=== PATIENT | female | born 1995 | race Caucasian/White ===

== ENCOUNTER 2018-09-18 11:21 | Emergency (ER) | payer OTHER ==
[2018-09-18 11:41] VITALS: BP 129/69
--- NOTE | 2018-09-18 12:05 | UC ---
Eye Complaint HPI - HPI Summary HPI Summary: Patient is 23 year old female, who present today to the urgent care with bilateral eye crusting and redness since yesterday. No sick contacts . No skin rash. She also reports cough which is productive of yellowish-green sputum for past 3 weeks and has not improved. Denies any fever, chills, chest pain or shortness of breath . Denies any abdominal pain , nausea or vomiting , diarrhea or constipation. - History of Current Complaint Chief Complaint: UCEye Stated Complaint: BILATERAL EYE COMPLAINT Time Seen by Provider: 09/18/18 11:40 Hx Obtained From: Patient Hx Last Menstrual Period: 09/15/18 Pain Intensity: 2 - Allergies/Home Medications Allergies/Adverse Reactions: Allergies Allergy/AdvReac Type Severity Reaction Status Date / Time No Known Allergies Allergy Verified 09/18/18 11:38 Home Medications: Home Medications Levonorgestrel (Iud) [Mirena IUD] 1 each VAGINAL DAILY 09/18/18 [History Confirmed 09/18/18] PMH/Surg Hx/FS Hx/Imm Hx - Additional Past Medical History Additional PMH: Tachycardia, resolved Previously Healthy: Yes - Surgical History Surgical History: Yes Surgery Procedure, Year, and Place: ACL X2 RIGHT KNEE. MANDIBULAR REPAIR - Social History Alcohol Use: Weekly Substance Use Type: None Smoking Status (MU): Never Smoked Tobacco Review of Systems All Other Systems Reviewed And Are Negative: Yes Constitutional: Positive: Fever Skin: Positive: Negative Eyes: Positive: Blurred Vision, Drainage, Eye Redness, Other - Crusting of the eyes ENT: Positive: Negative Respiratory: Positive: Cough - Productive Cardiovascular: Positive: Negative Gastrointestinal: Positive: Negative Genitourinary: Positive: Negative Motor: Positive: Negative Neurovascular: Positive: Negative Musculoskeletal: Positive: Negative Neurological: Positive: Negative Psychological: Positive: Negative Is Patient Immunocompromised?: No Physical Exam - Summary Physical Exam Summary: Physical Exam: Const: Appears well. No signs of apparent distress present. Alert and oriented x 3. Musculo: Walks with a normal gait. Head/Face: Atraumatic, normocephalic on inspection. Eyes: EOMI and PERRLA in both eyes. Conjunctivae are mildly erythematous ,no significant discharge noted ENT: Hearing normal, TM normal appearing bilaterally . Normal pharynx without any erythema or exudates No lymphadenopathy Respiratory: Respirations are unlabored. Lungs clear to auscultation bilaterally, no wheezing , rhonchi or rales noted . CVS: Regular rate and Rhythm, S1S2 normal , no murmurs identified. Extremities: Peripheral circulation is grossly normal. Pulses 2+ Abdomen : Soft non tender , nondistended , Bowel sounds present . No guarding , rebound tenderness or rigidity noted. Skin: No lesions or rash located on the upper extremities or on the lower extremities. Neuro: Cranial nerves II to XII intact, motor and sensory intact. DTR Intact bilaterally. Mood is normal. Affect is normal. . Triage Information Reviewed: Yes Vital Signs: Initial Vital Signs Temp 98.3 F 09/18/18 11:36 Pulse 60 09/18/18 11:36 Resp 16 09/18/18 11:36 BP 129/69 09/18/18 11:36 Pulse Ox 99 09/18/18 11:36 Vital Signs Reviewed: Yes Eye Complaint Course/Dx - Course Course Of Treatment: During the visit today, we discussed the findings and further plan. She appears to have conjunctivitis and atypical pneumonia. I will prescribe the medication to the pharmacy . Patient expressed understanding . - Differential Dx/Diagnosis Provider Diagnosis: Conjunctivitis, Atypical pneumonia Discharge - Sign-Out/Discharge Documenting (check all that apply): Patient Departure All imaging exams completed and their final reports reviewed: No Studies - Discharge Plan Condition: Stable Disposition: HOME Prescriptions: Azithromyxin ANA (NF) [Z-Ana (Zithromax) 250 mg tabs #6] 2 tab PO .TODAY, THEN 1 DAILY 5 Days #6 tab Polymyx/Trimethoprim OPTH* [Polytrim OPHTH*] 1 drop BOTH EYES Q6H 5 Days #1 btl Patient Education Materials: Pneumonia (ED), Conjunctivitis (ED) Referrals: [facility] [place] [facility] [Outside] - 1 Week No Primary Care Phys,NOPCP [Primary Care Provider] - Additional Instructions: Please start taking the medication as prescribed to the pharmacy . Follow up with your primary care doctor in 1 week Return to Urgent care / ER if symptoms get worse. - Billing Disposition and Condition Condition: STABLE Disposition: Home
== END 2018-09-18 12:28 | disposition home or self-care (01) ==
LOC: UCCORT 11:21
DX: H10.9 Unspecified conjunctivitis (principal); J18.9 Pneumonia, unspecified organism
CPT/HCPCS: 99202; G0463